=== PATIENT | female | born 1990 | race Caucasian/White ===

== ENCOUNTER 2021-03-05 02:51 | Emergency (ER) | payer OTHER | END 2021-03-05 04:49 | disposition home or self-care (01) | LOC: ER1 02:51 | DX: M79.89 Other specified soft tissue disorders (principal); Z90.49 Acquired absence of other specified parts of digestive tract; Z90.89 Acquired absence of other organs | CPT/HCPCS: 73590; 73630; 85379; 85610; 85730; 99283 ==